=== PATIENT | female | born 1980 | race Caucasian/White ===

== ENCOUNTER 2022-07-03 09:46 | Observation (INO) | payer BC, OTHER ==
[~2022-07-03] VITALS: Ht 172.7 cm; Wt 68.6 kg
[2022-07-03] MEDS ORDERED: ADENOSINE 6MG VIAL IV ONE ×2 (10:20→10:30)
[2022-07-03 10:37] LABS: BASOPHILS % (AUTO) 0.3 % (0.0-5.0); EOSINOPHILS % (AUTO) 0.5 % (0.0-8.0); HEMATOCRIT 46.9 % (36-48); LYMPHOCYTES % (AUTO) 27.7 % (21.0-51.0); MEAN CORPUSCULAR HEMOGLOBIN 30.4 pg (27.0-33.0); MEAN CORPUSCULAR HGB CONC 33.3 g/dL (32.0-36.0); MEAN CORPUSCULAR VOLUME 91.2 fL (79-99); MONOCYTES % (AUTO) 7.8 % (3.0-13.0); NEUTROPHILS % (AUTO) 63.3 % (40.0-77.0); PLATELET COUNT (AUTO) 293 K/uL (130-400); RED BLOOD CELL COUNT(AUTO) 5.14 MIL/uL (4.00-5.50); RED CELL DISTRIBUTION WIDTH 12.5 % (11.0-15.5); WHITE BLOOD COUNT (AUTO) 7.4 K/uL (4.8-10.8)
[2022-07-03 10:47] LABS: POTASSIUM 3.5 mmol/L (3.5-5.1)
[2022-07-03 10:48] LABS: ALBUMIN 4.4 g/dL (3.5-5.0); MAGNESIUM 2.6 mg/dL (1.80-2.40); TOTAL PROTEIN, SERUM 7.8 g/dL (6.0-8.3)
[2022-07-03 10:58] LABS: AMPHET/METH SCREEN,URINE NEGATIVE (NEGATIVE); BARBITURATE SCREEN, URINE NEGATIVE (NEGATIVE); BENZODIAZEPINES SCREEN,URINE NEGATIVE (NEGATIVE); CANNABINOID SCREEN,URINE NEGATIVE (NEGATIVE); COCAINE SCREEN,URINE NEGATIVE (NEGATIVE); OPIATE SCREEN,URINE NEGATIVE (NEGATIVE); PHENCYCLIDINE SCREEN,URINE NEGATIVE (NEGATIVE)
[2022-07-03] MEDS ORDERED: DIPHENHYDRAMINE HCL 25 MG CAPSULE PO PRN ×2 (11:00)
[2022-07-03] MEDS ORDERED: DEXTROSE 50%-WATER 50 ML DISP.SYRIN IV PRN (11:00)
[2022-07-03] MEDS ORDERED: 0.9%NACL 10ML VIAL IVP SCH (11:00)
[2022-07-03] MEDS ORDERED: LIDOCAINE HCL-MPF 1% 2ML VIAL IJ PRN (11:00)
[2022-07-03] MEDS ORDERED: DILTIAZEM 25MG INJ IVP SCH (11:00)
[2022-07-03] MEDS ORDERED: POTASSIUM CHLORIDE 10% ELIXIR 20 MEQ/15 ML UDCUP PO PRN ×2 (11:00)
[2022-07-03] MEDS ORDERED: POTASSIUM CHLORIDE 20MEQ/100ML 100 ML IV PRN ×2 (11:00)
[2022-07-03] MEDS ORDERED: DILTIAZEM 125MG+100 ML NS 125 ML IV SCH (11:00)
[2022-07-03] MEDS ORDERED: KCL 20 MEQ ERTAB PO PRN ×2 (11:00)
[2022-07-03] MEDS ORDERED: LIDOCAINE HCL-MPF 1% 2ML VIAL IV PRN (11:00)
[2022-07-03 11:06] LABS: APPEARANCE,URINE CLEAR (CLEAR); BILIRUBIN,URINE 0.5 mg/dL (NEGATIVE); COLOR,URINE YELLOW (YELLOW); GLUCOSE, URINE (UA) NEGATIVE (NEGATIVE); KETONES,URINE 5 mg/dL (NEGATIVE); LEUKOCYTE ESTERASE ,URINE NEGATIVE Leu/uL (NEGATIVE); NITRATE,URINE NEGATIVE (NEGATIVE); OCCULT BLOOD,URINE MODERATE (NEGATIVE); PH,URINE 5.5 (5.0-8.0); PROTEIN,URINE 30 mg/dL (NEGATIVE); UROBILINOGEN,URINE 0.2 mg/dL (0.2-1.0)
[2022-07-03 11:21] LABS: BACTERIA,URINE RARE /HPF (None Seen); MUCUS,URINE MANY LPF (None Seen); SQUAMOUS EPITHELIAL CELL,UR RARE /HPF (0-2)
[2022-07-03] MEDS ORDERED: INSULIN HUMULIN R 100 UNIT/ML 3ML SQ SCH (11:30)
[2022-07-03] MEDS: INSULIN R PO SSI SQ SCH ×3 (11:30→20:35)
[2022-07-03 11:50] VITALS: BP 124/93
[2022-07-03] MEDS ORDERED: DIPH50 PO (11:53)
[2022-07-03] MEDS ORDERED: METO-408 PO (11:53)
[2022-07-03] MEDS: VERAPAMIL HCL 240 MG SRTAB PO SCH (12:57)
[2022-07-03 16:30] VITALS: BP 119/84
[2022-07-03 19:57] VITALS: BP 103/72
[2022-07-04 00:09] VITALS: BP 106/67
[2022-07-04 04:00] VITALS: BP 102/69
[2022-07-04 04:55] LABS: CREATININE 0.8 mg/dL (0.5-1.5); MAGNESIUM 1.8 mg/dL (1.80-2.40); POTASSIUM 3.6 mmol/L (3.5-5.1)
[2022-07-04] MEDS ORDERED: MAGNESIUM 2GM PREMIX 50ML 50 ML IV ONE (05:23)
[2022-07-04] MEDS ORDERED: MAGNESIUM 2GM PREMIX 50ML 50 ML IV PRN (05:30)
[2022-07-04] MEDS: INSULIN R PO SSI SQ SCH (06:33)
[2022-07-04 08:07] VITALS: BP 113/76
[2022-07-04] MEDS: VERAPAMIL HCL 240 MG SRTAB PO SCH (08:07)
[2022-07-04] MEDS ORDERED: VERA240T96 PO (08:17)
== END 2022-07-04 10:10 | disposition home or self-care (01) ==
LOC: EDH 09:46 → INTOOBSV 09:47 → DIRECT 09:47 → 2AH 11:38
PROVIDERS: ADMIT Hospitalist; ATTEND Hospitalist
DX: I47.1 Supraventricular tachycardia (principal); E83.42 Hypomagnesemia; M79.7 Fibromyalgia; Z79.899 Other long term (current) drug therapy; Z98.82 Breast implant status
CPT/HCPCS: 99285; 71046; 96375; 84443; 82550 ×3; 83735 ×2; 83874 ×3; 84484 ×4; 80053; 80305; 85025; 82948; 81025; 36415 ×2; 93005 ×6; 81001; 96365; 96366; 80048; J0153; J3490; G0378; J3475

== ENCOUNTER 2022-08-01 05:52 | Day surgery (SDC) | payer BC ==
[2022-07-28 13:13] LABS: BASOPHILS % (AUTO) 0.4 % (0.0-5.0); EOSINOPHILS % (AUTO) 0.4 % (0.0-8.0); HEMATOCRIT 45.3 % (36-48); LYMPHOCYTES % (AUTO) 31.5 % (21.0-51.0); MEAN CORPUSCULAR HEMOGLOBIN 30.2 pg (27.0-33.0); MEAN CORPUSCULAR HGB CONC 33.1 g/dL (32.0-36.0); MEAN CORPUSCULAR VOLUME 91.1 fL (79-99); NEUTROPHILS % (AUTO) 60.5 % (40.0-77.0); PLATELET COUNT (AUTO) 269 K/uL (130-400); RED BLOOD CELL COUNT(AUTO) 4.97 MIL/uL (4.00-5.50); RED CELL DISTRIBUTION WIDTH 12.6 % (11.0-15.5); WHITE BLOOD COUNT (AUTO) 4.9 K/uL (4.8-10.8)
[2022-07-28 13:23] LABS: CREATININE 0.9 mg/dL (0.5-1.5); POTASSIUM 3.7 mmol/L (3.5-5.1)
[2022-07-28 13:24] LABS: INR 0.98 (0.85-1.15); PROTHROMBIN TIME 10.7 SEC (9.6-11.6)
[2022-07-28 13:26] LABS: PARTIAL THROMBOPLASTIN TIME 28.5 SEC (26.3-35.5)
[2022-07-31 09:19] VITALS: BP 119/88
[~2022-08-01] VITALS: Ht 172.7 cm; Wt 70.3 kg
[2022-08-01] VITALS (8 sets, daily range): BP systolic 105–122; BP diastolic 64–79
[~2022-08-01 05:52] MED LIST: DIPH50 PO; DOCU-116 PO; VERA120T92 PO
[2022-08-01] MEDS ORDERED: 0.9%NACL 1000ML 1,000 ML IV ONE (06:24)
[2022-08-01] MEDS ORDERED: MIDAZOLAM HCL 1 MG/ML 2ML VIAL ONE ×4 (07:18→09:54)
[2022-08-01] MEDS ORDERED: LIDOCAINE HCL 1% 20 ML VIAL ONE ×2 (07:18→07:41)
[2022-08-01] MEDS ORDERED: HEPARIN 10,000 UNIT/10ML (1,000 UNIT/ML) VIAL ONE (07:18)
[2022-08-01] MEDS ORDERED: MEPERIDINE-PF 25 MG/ML SYG ONE ×4 (07:18→09:54)
[2022-08-01] MEDS ORDERED: DiphenhydrAMINE HCL 50 MG/ML VIAL ONE (08:03)
[2022-08-01] MEDS ORDERED: ISOPROTERENOL HCL 0.2 MG/ML AMP/VIAL/BAG ONE (08:33)
== END 2022-08-01 14:10 | disposition home or self-care (01) ==
LOC: DAH 05:52
PROVIDERS: ATTEND Internal Medicine Cardiovascular Disease
DX: I47.1 Supraventricular tachycardia (principal); E78.00 Pure hypercholesterolemia, unspecified; Z79.01 Long term (current) use of anticoagulants; Z79.899 Other long term (current) drug therapy; Z82.49 Family history of ischemic heart disease and other diseases of the circulatory system; Z98.890 Other specified postprocedural states
CPT/HCPCS: 80048; 85025; 85610; 85730; 36415; 93005 ×2; 93653; 93623; C1894 ×5; C1730 ×4; A4649 ×2; C1732; J1200; J7030; J3490; J1644 ×2; J2250 ×4; J2175 ×4; A4215; A4222; A4221; A4663; A4216; A4606; A4223 ×3; 99156; 99157

== ENCOUNTER → 2022-08-17 | Outpatient (CLI) | payer BC ==
[~2022-08-17] MED LIST changes: -VERA120T92 PO
[2022-08-17 11:24] LABS: BASOPHILS % (AUTO) 0.2 % (0.0-5.0); EOSINOPHILS % (AUTO) 0.6 % (0.0-8.0); HEMATOCRIT 42.9 % (36-48); LYMPHOCYTES % (AUTO) 37.4 % (21.0-51.0); MEAN CORPUSCULAR HEMOGLOBIN 30.3 pg (27.0-33.0); MEAN CORPUSCULAR HGB CONC 33.3 g/dL (32.0-36.0); MEAN CORPUSCULAR VOLUME 90.9 fL (79-99); MONOCYTES % (AUTO) 7.2 % (3.0-13.0); NEUTROPHILS % (AUTO) 54.4 % (40.0-77.0); PLATELET COUNT (AUTO) 292 K/uL (130-400); RED BLOOD CELL COUNT(AUTO) 4.72 MIL/uL (4.00-5.50); RED CELL DISTRIBUTION WIDTH 12.2 % (11.0-15.5); WHITE BLOOD COUNT (AUTO) 4.7 K/uL (4.8-10.8)
[2022-08-17 11:27] LABS: CREATININE 0.8 mg/dL (0.5-1.5); POTASSIUM 4.2 mmol/L (3.5-5.1)
== END | disposition home or self-care (01) ==
LOC: LAB 10:29
PROVIDERS: ATTEND Internal Medicine Cardiovascular Disease
DX: I47.1 Supraventricular tachycardia (principal)
CPT/HCPCS: 36415; 80048; 85025; 85378

== ENCOUNTER 2022-10-10 06:20 | Day surgery (SDC) | payer BC ==
[2022-10-04 16:09] VITALS: BP 142/94
[2022-10-04 17:38] LABS: HEMATOCRIT 45.9 % (36-48); MEAN CORPUSCULAR HEMOGLOBIN 30.5 pg (27.0-33.0); MEAN CORPUSCULAR HGB CONC 32.7 g/dL (32.0-36.0); MEAN CORPUSCULAR VOLUME 93.3 fL (79-99); RED BLOOD CELL COUNT(AUTO) 4.92 MIL/uL (4.00-5.50); RED CELL DISTRIBUTION WIDTH 12.2 % (11.0-15.5); WHITE BLOOD COUNT (AUTO) 5.5 K/uL (4.8-10.8)
[2022-10-04 17:51] LABS: INR 0.95 (0.85-1.15); PROTHROMBIN TIME 10.4 SEC (9.6-11.6)
[2022-10-04 17:53] LABS: PARTIAL THROMBOPLASTIN TIME 26.5 SEC (26.3-35.5)
[2022-10-04 17:54] LABS: CREATININE 0.9 mg/dL (0.5-1.5); POTASSIUM 3.7 mmol/L (3.5-5.1)
[~2022-10-10] VITALS: Ht 172.7 cm; Wt 71.0 kg
[2022-10-10] VITALS (7 sets, daily range): BP systolic 97–123; BP diastolic 57–83
[~2022-10-10 06:20] MED LIST changes: +0.9% NACL 500ML IV.SOLN 500 ML IV SCH; +VERA120T92 PO
[2022-10-10] MEDS ORDERED: 0.9%NACL 1000ML 1,000 ML IV ONE (07:24)
[2022-10-10] MEDS ORDERED: HEPARIN 10,000 UNIT/10ML (1,000 UNIT/ML) VIAL ONE (08:53)
[2022-10-10] MEDS ORDERED: LIDOCAINE HCL 400MG/20ML VIAL ONE (08:53)
[2022-10-10] MEDS ORDERED: MIDAZOLAM HCL 1 MG/ML 2ML VIAL ONE ×5 (08:54→10:57)
[2022-10-10] MEDS ORDERED: MEPERIDINE-PF 25 MG/ML SYG ONE ×5 (08:55→10:57)
[2022-10-10] MEDS ORDERED: ISOPROTERENOL HCL 0.2 MG/ML AMP/VIAL/BAG ONE (10:03)
[2022-10-10] MEDS ORDERED: IVAB5TAB PO (12:55)
== END 2022-10-10 16:00 | disposition home or self-care (01) ==
LOC: DAH 06:20
PROVIDERS: ATTEND Internal Medicine Cardiovascular Disease
DX: I47.1 Supraventricular tachycardia (principal); E78.00 Pure hypercholesterolemia, unspecified; Z79.01 Long term (current) use of anticoagulants; Z79.899 Other long term (current) drug therapy; Z98.890 Other specified postprocedural states; Z82.49 Family history of ischemic heart disease and other diseases of the circulatory system
CPT/HCPCS: 80048; 84703; 85027; 85610; 85730; 36415; 93620; 93623; 93613; C1894 ×5; C1730 ×4; C1731; A4649 ×2; J3490 ×2; J7030; J1644 ×3; J2250 ×5; J2175 ×5; A4215; A4222; A4221; A4663; A4216; A4606; A4223 ×3; 99156; 99157

== ENCOUNTER → 2022-10-24 | Outpatient (CLI) | payer BC ==
[~2022-10-24] MED LIST changes: -0.9% NACL 500ML IV.SOLN 500 ML IV SCH; +IVAB5TAB PO; -VERA120T92 PO
== END | disposition home or self-care (01) ==
LOC: RAH 12:40
PROVIDERS: ATTEND Internal Medicine Cardiovascular Disease
DX: R22.42 Localized swelling, mass and lump, left lower limb (principal); Z98.890 Other specified postprocedural states
CPT/HCPCS: 76882

== ENCOUNTER → 2023-03-27 | Outpatient (CLI) | payer BC ==
[~2023-03-27] MED LIST changes: +IOHEXOL 350 MG/ML 100ML INFUS..BTL IV ONE
== END | disposition home or self-care (01) ==
LOC: RAH 09:38
PROVIDERS: ATTEND Internal Medicine Cardiovascular Disease
DX: I47.1 Supraventricular tachycardia (principal); Z82.49 Family history of ischemic heart disease and other diseases of the circulatory system
CPT/HCPCS: 71275; Q9967